=== PATIENT | male | born 1995 | race Caucasian/White ===

== ENCOUNTER → 2017-09-17 | Outpatient (CLI) | payer OTHER | LOC: BMCIMAGING 11:25 | PROVIDERS: ATTEND Family Medicine | DX: Z13.828 Encounter for screening for other musculoskeletal disorder (principal); M25.851 Other specified joint disorders, right hip; M16.7 Other unilateral secondary osteoarthritis of hip; M51.37 Other intervertebral disc degeneration, lumbosacral region ==

== ENCOUNTER 2018-08-26 21:00 | Emergency (ER) | payer OTHER ==
[2018-08-26 21:05] VITALS: BP 146/88
--- NOTE | 2018-08-26 21:17 | EDPHY ---
H & P Time Seen by Provider: 08/26/18 21:09 HPI/ROS: Chief complaint: Right thumb laceration History of present illness: This is a 22-year-old male who presents to the emergency department for a right thumb laceration. He lacerated it with a knife while cutting vegetables. Minimal pain. Minimal bleeding. He can still move the thumb well. No report of coolness or paresthesias. His tetanus is up- to-date. Smoking Status: Never smoked Physical Exam: General: Alert, nontoxic. Skin: 0.5 cm laceration to the tip of the right thumb. Musculoskeletal: He is moving the thumb in the PIP and MCP joint in all cai well. Vascular: Capillary refill brisk in the right thumb. Neurologic: Sensation intact using light touch and two-point discrimination. Constitutional: Initial Vital Signs Temperature (C) 36.9 C 08/26/18 21:03 Heart Rate 71 08/26/18 21:03 Respiratory Rate 17 08/26/18 21:03 O2 Sat (%) 97 08/26/18 21:03 O2 Delivery Mode Room Air Allergies/Adverse Reactions: No Known Allergies Allergy (Unverified 08/26/18 21:03) Home Medications: Medication Instructions Recorded NK [No Known Home Meds] 08/26/18 MDM/Departure - MDM Procedures: Procedure: Laceration repair. Verbal consent was obtained from the patient. The 0.5 cm laceration on the right thumb tip of was anesthetized in the usual fashion. The wound was irrigated, draped and explored to its base with a gloved finger. There were no deep structures involved. No tendon injury was identified. The wound was repaired with 6 0 Prolene, 4 simple interrupted sutures. The wound repair was simple. The procedure was performed by myself. ED Course/Re-evaluation: Patient seen under the supervision of my secondary supervising physician Dr. Momo Blanca. Patient presents for a laceration to his right thumb. The thumb is neurovascularly intact. He has good musculoskeletal control. His tetanus is updated. The wound is repaired and dressed. Home care is discussed. He is to follow up with a primary care doctor or hand doctor for recheck. Return precautions are given. - Depart Disposition: Home, Routine, Self-Care Clinical Impression: Finger laceration Qualifiers: Encounter type: initial encounter Finger: thumb Damage to nail status: without damage Foreign body presence: without foreign body Laterality: right Qualified Code(s): S61.011A - Laceration without foreign body of right thumb without damage to nail, initial encounter Condition: Good Instructions: Finger Laceration (ED) Additional Instructions: Follow-up with a primary care doctor or hand doctor for recheck Stitches to be removed in approximately 7 days If symptoms worsen or new symptoms develop return to the emergency department for recheck Referrals: NONE *PRIMARY CARE P,. [Primary Care Provider] - As per Instructions [facility],. [Clinic] - As per Instructions Mc Osuna MD [Medical Doctor] - As per Instructions
== END 2018-08-26 21:46 | disposition home or self-care (01) ==
PROC: 0HQFXZZ Repair Right Hand Skin, External Approach (ICD-10-PCS; principal; 2018-08-26)
DX: S61.011A Laceration without foreign body of right thumb without damage to nail, initial encounter (principal); W26.0XXA Contact with knife, initial encounter; Y92.9 Unspecified place or not applicable; Y99.9 Unspecified external cause status; Y93.9 Activity, unspecified